=== PATIENT | female | born 1990 | race Caucasian/White ===

== ENCOUNTER 2021-01-22 16:01 | Emergency (ER) | payer OTHER ==
[~2021-01-22 16:01] MED LIST: AMOXICILLIN500 MG PO; BUSPAR5 MG PO; CERTAGEN1 EACH PO; HYDROCODONE-APA1 TAB PO; K-DUR20 MEQ PO; MOTRIN600 MG PO; NEURONTIN400 MG PO; NORCO 5-325 TA1 EACH PO; PERCOCET 5-3251 EACH PO; PRILOSEC20 MG PO; PROZAC20 MG PO; ROBAXIN500 MG PO; SEROQUEL 100MG100 MG PO; ZANTAC150 MG PO
[2021-01-22 16:35] LABS: BILIRUBIN NEGATIVE (NEGATIVE); BLOOD NEGATIVE Ery/uL (NEGATIVE); CLARITY CLEAR (CLEAR); COLOR YELLOW (YELLOW); GLUCOSE (U) NORMAL (NORMAL); LEUKOCYTES NEGATIVE Leu/uL (NEGATIVE); NITRITE NEGATIVE (NEGATIVE); PROTEIN NEGATIVE (NEGATIVE); SPECIFIC GRAVITY >=1.030 (1.001-1.030); UROBILINOGEN 0.2 mg/dL (0.2-1.0)
[2021-01-22 18:40] LABS: BASOPHIL 0.4 % (0-2); EOSINOPHIL 1.5 % (0-5); HCT 42.3 % (37.0-47.0); HGB 14.8 g/dl (12.5-16.0); LYMPHOCYTE 19.5 % (15-48); MCV 88.5 fL (78.0-100.0); MPV 11.6 fL (6.0-9.5); NEUTROPHIL 72.3 % (41-80); NRBC 0; PLT 191 K/uL (150-400); RBC 4.78 M/uL (4.20-5.40); RDW 12.3 % (11.5-14.0); WBC 13.1 K/uL (4.0-10.5)
[2021-01-22 18:56] LABS: ALBUMIN 4.2 g/dL (3.4-5.0); BILIRUBIN - TOTAL 0.4 mg/dL (0.2-1.0); BUN/CREAT RATIO (CALC) 6.8 RATIO; CREATININE 0.59 mg/dL (0.51-0.95); GLOBULIN (CALCULATION) 3.2 g/dL; POTASSIUM 3.4 mmol/L (3.5-5.1); TOTAL PROTEIN 7.4 g/dL (6.4-8.2)
[2021-01-22] MEDS ORDERED: CIPRO500 MG PO (21:37)
[2021-01-22] MEDS ORDERED: ONDANSETRON ODT4 MG PO (21:37)
[2021-01-22] MEDS ORDERED: METRONIDAZOLE500 MG PO (21:37)
== END 2021-01-22 22:15 | disposition home or self-care (01) ==
LOC: FER 16:01
PROVIDERS: Emergency Medicine
DX: K52.9 Noninfective gastroenteritis and colitis, unspecified (principal); F17.210 Nicotine dependence, cigarettes, uncomplicated; Z87.442 Personal history of urinary calculi; Z90.49 Acquired absence of other specified parts of digestive tract; Z98.890 Other specified postprocedural states; Z88.8 Allergy status to other drugs, medicaments and biological substances
CPT/HCPCS: 36415; 80053; 81003; 83690; 85025; J2060; J2270; J2405; Q9967